=== PATIENT | male | born 1995 | race African-American/Black ===

== ENCOUNTER 2017-07-04 20:05 | Emergency (ER) | payer OTHER ==
[2017-07-04 20:13] VITALS: BP 104/58; PULSE 87; RESP 18; TEMP 98
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
== END 2017-07-04 21:01 | disposition home or self-care (01) ==
LOC: EC 20:05
DX: S00.81XA Abrasion of other part of head, initial encounter (principal); Z79.899 Other long term (current) drug therapy; V47.6XXA Car passenger injured in collision with fixed or stationary object in traffic accident, initial encounter; Y92.410 Unspecified street and highway as the place of occurrence of the external cause
CPT/HCPCS: 71020; 99284

== ENCOUNTER → 2017-07-29 | Outpatient (CLI) | payer OTHER ==
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
== END | disposition home or self-care (01) ==
LOC: RADMRIMAIN 20:40
PROVIDERS: ATTEND Family Medicine
DX: F07.81 Postconcussional syndrome (principal)
CPT/HCPCS: 70553; A9581

== ENCOUNTER → 2018-02-25 | Outpatient (CLI) | payer OTHER ==
--- NOTE | 2018-02-28 19:08 | EEG ---
ELECTROENCEPHALOGRAM REPORT DATE OF SERVICE: 02/25/2018. REASON FOR TESTING: Head injury with loss of consciousness, syncope, headache. DESCRIPTION OF THE PROCEDURE: This EEG was performed using a 21 channel digital electroencephalograph, following international 10-20 system. DESCRIPTION OF THE RECORDING: From the beginning of the tracing, and with patient's eyes closed, the background rhythm was mostly consisting of 10 Hz alpha frequency in the posterior occipital leads. No obvious asymmetry is seen. Frequent movement artifacts are seen. Photic stimulation was performed with a good driving response seen. No pathological waves were elicited. Hyperventilation was not performed. The patient remains awake throughout the tracing. No epileptiform discharges were seen. His EKG lead showed a regular rate and rhythm. INTERPRETATION: This awake EEG can be considered within normal limits. There was no asymmetry seen. No epileptiform discharges were noticed. The absence of epileptiform discharges does not rule out the diagnosis of epilepsy; therefore clinical correlation is recommended. Thank you, Dr. Wilson for allowing me to participate in the care of your patient. If you have any questions, please feel free to contact me. MMODL / IJN: [id number] /
== END | disposition home or self-care (01) ==
LOC: NEUROMAIN 07:30
PROVIDERS: ATTEND Family Medicine
DX: R55 Syncope and collapse (principal)
CPT/HCPCS: 95816

== ENCOUNTER 2018-03-23 16:51 | Emergency (ER) | payer OTHER ==
[2018-03-23 17:39] VITALS: BP 133/99; PULSE 76; RESP 20; TEMP 99.1
[2018-03-23] MEDS ORDERED: CEPHALEXIN 500 MG CAP PO STA (19:24)
[2018-03-23] MEDS ORDERED: MUPIROCIN 2% OINT 22 GM TUBE TOPICAL STA (19:24)
--- NOTE | 2018-03-23 19:36 | ED ---
Skin/Abscess/FB HPI - General Chief complaint: Skin/Abscess/Foreign Body Stated complaint: Rash/Abscess on Armpit Time Seen by Provider: 03/23/18 19:03 Source: patient, RN notes reviewed Mode of arrival: ambulatory Limitations: no limitations - History of Present Illness Initial comments: This is a 22-year-old male who presents to the emergency department with chief complaint of rash. Patient states that he developed a rash in his left armpit approximately one week ago. He states that his roommate had the same rash previously. He states that he has noticed that the rash has spread to his face and neck. He states the rash started off has clear pruritic lesions and is now painful and red. He states that he has been applying antifungal over-the- counter cream and hydrogen peroxide. He denies any fevers or chills. He states that his roommate was evaluated for the same rash and was given antibiotics which seemed to clear the rash up. Patient denies any medical issues. Denies chest pain or shortness of breath, abdominal pain, nausea or vomiting. - Related Data Home Medications Medication Instructions Recorded Confirmed Atomoxetine HCl [Strattera] 25 mg PO DAILY 07/04/17 07/04/17 Previous Rx's Medication Instructions Recorded Cephalexin [Keflex] 500 mg PO Q12HR #20 cap 03/23/18 Allergies Allergy/AdvReac Type Severity Reaction Status Date / Time montelukast [From Singulair] Allergy Unknown Verified 03/23/18 17:39 Review of Systems ROS Statement: Those systems with pertinent positive or pertinent negative responses have been documented in the HPI. ROS Other: All systems not noted in ROS Statement are negative. Past Medical History Past Medical History: No Reported History History of Any Multi-Drug Resistant Organisms: None Reported Additional Past Surgical History / Comment(s): tubes in bilat ears, cyst removal. Past Psychological History: No Psychological Hx Reported Smoking Status: Never smoker Past Alcohol Use History: None Reported Past Drug Use History: None Reported General Exam - General Exam Comments Initial Comments: General: Awake and alert, well-developed; in no apparent distress. HEENT: Head atraumatic, normocephalic. Pupils are equal, round and reactive to light. Extraocular movements intact. Oropharynx moist without erythema or exudate. Neck: Supple. Normal ROM. Cardiovascular: Regular rate and rhythm. No murmurs, rubs or gallops. Chest symmetrical. Respiratory: Lungs clear to auscultation bilaterally. No wheezes, rales or rhonchi. Normal respiratory effort with no use of accessory muscles. Musculoskeletal: Normal ROM, no tenderness bilateral upper and lower extremities. Ambulating normally. Skin: Scaly, erythematous dry patches of left axilla, left side of neck and one patch on the left cheek. Left cheek lesion has overlying yellow crusting. Neurological: Alert and oriented x3. CN II-XII grossly intact. Speech is fluent and answers are appropriate. No focal neuro deficits. Psychiatric: Normal mood and affect. No overt signs of depression or anxiety noted. Limitations: no limitations Course Vital Signs 03/23/18 17:36 Temperature 99.1 F Pulse Rate 76 Respiratory 20 Rate Blood Pressure 133/99 O2 Sat by Pulse 99 Oximetry Medical Decision Making - Medical Decision Making This is a 22-year-old male who presents to the emergency department with chief complaint of rash. Patient has a scaly, erythematous rash within the left axilla, neck and face. Patient was evaluated by myself and attending physician , Dr. Shah. Patient has been trying an antifungal cream without improvement. He will be started on Keflex and mupirocin ointment. Patient's vital signs are stable and he is in no acute distress. He will be discharged home at this time. He is in agreement and voices understanding. All questions were answered. Disposition Clinical Impression: Rash Disposition: HOME SELF-CARE Condition: Good Instructions: Acute Rash (ED), Impetigo (ED) Additional Instructions: Please take medications as prescribed. Please apply mupirocin ointment to the affected areas 2-3 times per day. Please follow up with primary care provider within 1-2 days. Return to emergency department if symptoms should worsen or any concerns arise. Prescriptions: Cephalexin [Keflex] 500 mg PO Q12HR #20 cap Is patient prescribed a controlled substance at d/c from ED?: No Referrals: Mario Wilson MD [Primary Care Provider] - 1-2 days Time of Disposition: 19:36
== END 2018-03-23 19:40 | disposition home or self-care (01) ==
LOC: EC 16:51
DX: R21 Rash and other nonspecific skin eruption (principal); Z79.899 Other long term (current) drug therapy; Z88.8 Allergy status to other drugs, medicaments and biological substances
CPT/HCPCS: 99282

== ENCOUNTER → 2018-06-29 | Outpatient (CLI) | payer OTHER ==
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
== END | disposition home or self-care (01) ==
LOC: RADMRIMAIN 14:04
PROVIDERS: ATTEND Family Medicine
DX: G44.329 Chronic post-traumatic headache, not intractable (principal)
CPT/HCPCS: 70553; A9585

== ENCOUNTER 2024-11-01 16:19 | Emergency (ER) | payer SELFPAY ==
[2024-11-01 16:39] VITALS: RESP 16; TEMP 98
--- NOTE | 2024-11-01 17:05 | ED ---
Abdominal Pain HPI - General Chief Complaint: Abdominal Pain Stated Complaint: Constipation Time Seen by Provider: 11/01/24 16:43 Source: patient, RN notes reviewed Mode of arrival: ambulatory Limitations: no limitations - History of Present Illness Initial Comments: This is a 28-year-old male who presents to the emergency department for abdominal pain. States that a few months ago he was having abdominal pain and found that he was constipated. He took MiraLAX and cleaned himself out. He felt better for a while afterwards, but then noticed that he would continue to have discomfort whenever he would lay a certain way. States that his bowels almost feel like they are being squished on each other. He is still having bowel movements each day. Denies any nausea or vomiting. MD Complaint: abdominal pain - Related Data Home Medications Medication Instructions Recorded Confirmed Atomoxetine HCl [Strattera] 25 mg PO DAILY 07/04/17 07/04/17 Previous Rx's Medication Instructions Recorded Cephalexin [Keflex] 500 mg PO Q12HR #20 cap 03/23/18 Allergies Allergy/AdvReac Type Severity Reaction Status Date / Time montelukast [From Singulair] Allergy Unknown Verified 11/01/24 16:39 Review of Systems ROS Statement: Those systems with pertinent positive or pertinent negative responses have been documented in the HPI. ROS Other: All systems not noted in ROS Statement are negative. Past Medical History Past Medical History: No Reported History History of Any Multi-Drug Resistant Organisms: None Reported Additional Past Surgical History / Comment(s): tubes in bilat ears, cyst removal. Past Psychological History: No Psychological Hx Reported Past Alcohol Use History: None Reported Past Drug Use History: None Reported General Exam Limitations: no limitations General appearance: alert, in no apparent distress Head exam: Present: atraumatic, normocephalic, normal inspection Respiratory exam: Present: normal lung sounds bilaterally. Absent: respiratory distress, wheezes, rales, rhonchi, stridor Cardiovascular Exam: Present: regular rate, normal rhythm GI/Abdominal exam: Present: soft, normal bowel sounds. Absent: distended, tenderness, guarding, rebound, rigid Neurological exam: Present: alert, oriented X3, CN II-XII intact Psychiatric exam: Present: normal affect, normal mood Skin exam: Present: warm, dry, intact, normal color. Absent: rash Course Vital Signs 11/01/24 11/01/24 16:36 18:35 Temperature 98.0 F Pulse Rate 100 94 Respiratory 16 16 Rate Blood Pressure 147/82 133/73 O2 Sat by Pulse 98 100 Oximetry Medical Decision Making - Medical Decision Making This is a 28 year old male who presents to the emergency department for abdominal pain. Was pt. sent in by a medical professional or institution? @ -No Did you speak to anyone other than the patient for history? @ -No Did you review nursing and triage notes? @ -Yes, and I agree, it is accurate with regards to the patient's symptoms. Were old charts reviewed? @ -No Differential Diagnosis? @ -Differential Abdominal Pain Men: Appendicitis, cholecystitis, diverticulosis, ischemic bowel, pancreatitis, h epatitis, UTI, gastroenteritis, AAA, incarcerated hernia, bowel obstruction, constipation, inflammatory bowel, hepatitis, peptic ulcer disease, splenic infarction, perforated viscus, testicular torsion, this is not meant to be an all-inclusive list EKG interpreted by me (3pts min.)? @ -Not obtained X-rays interpreted by me (1pt min.)? @ -KUB x-ray obtained. My interpretation identifies no dilation of the bowel loops. CT interpreted by me (1pt min.)? @ -Not obtained U/S interpreted by me (1pt. min.)? @ -Not obtained What testing was considered but not performed? (CT, X-rays, U/S, labs)? Why? @ -None What meds were considered but not given? Why? @ -None Did you discuss the management of the patient with other professionals? @ -No Did you reconcile home meds? @ -No Was smoking cessation discussed for >3mins.? @ -No Was critical care preformed (if so, how long)? @ -No Were there social determinants of health that impacted care today? How? (Homelessness, low income, unemployed, alcoholism, drug addiction, transporta tion, low edu. Level, literacy, decrease access to med. care, [facility], rehab)? @ -No Was there de-escalation of care discussed even if they declined? (Discuss DNR or withdrawal of care, Hospice)? @ -No What co-morbidities impacted this encounter? (DM, HTN, Smoking, COPD, CAD, Cancer, CVA, Hep., AIDS, mental health diagnosis, sleep apnea, morbid obesity)? @ -None Was patient admitted / discharged? @ -Discharged. Lab work demonstrates mild hypokalemia with potassium 3.4 and is otherwise unremarkable. 40 mEq of K-Dur administered. Urinalysis negative for signs of infection. KUB x-ray obtained revealing no acute process. Patient remained asymptomatic in the emergency department. Advised he continue with MiraLAX as needed for any additional constipation. We also discussed something like a daily probiotic to help regulate his bowels. Advised follow-up with his PCP for reevaluation of ongoing symptoms. Patient discharged home in stable condition. Case discussed with ED attending Dr. Prieto. Return precautions reviewed in depth, the patient is instructed to return to the emergency department with any new, worsening, or concerning symptoms. Patient verbalized understanding. Undiagnosed new problem with uncertain prognosis? @ -None Drug Therapy requiring intensive monitoring for toxicity (Heparin, Nitro, Insulin, Cardizem)? @ -None Were any procedures done? @ -None Diagnosis/symptom? @ -Abdominal pain Acute, or Chronic, or Acute on Chronic? @ -Chronic Uncomplicated (without systemic symptoms) or Complicated (systemic symptoms)? @ -Uncomplicated Side effects of treatment? @ -None Exacerbation, Progression, or Severe Exacerbation] @ -Exacerbation Poses a threat to life or bodily function? @ -No - Lab Data Result diagrams: 11/01/24 16:58 11/01/24 16:58 Lab Results 11/01/24 11/01/24 11/01/24 Range/Units 16:58 16:58 16:58 WBC 8.06 (4.50-10.00) 10*3/uL RBC 4.90 (4.40-5.60) 10*6/uL Hgb 15.3 (13.0-17.0) g/dL Hct 43.7 (39.6-50.0) % MCV 89.2 (80.0-97.0) fL MCH 31.2 (27.0-32.0) pg MCHC 35.0 (32.0-37.0) g/dL Plt Count 259 (140-440) 10*3/uL MPV 10.2 (9.5-12.2) fL Immature Gran % (Auto) 0.4 % Neutrophils % 51.3 % Lymphocytes % 42.2 % Monocytes % 5.3 % Eosinophils % 0.2 % Basophils % 0.6 % Immature Gran # 0.03 (0.00-0.04) 10*3/uL Neutrophils # 4.13 (1.80-7.70) 10*3/uL Lymphocytes # 3.40 (0.90-5.00) 10*3/uL Monocytes # 0.43 (0.20-1.00) 10*3/uL Eosinophils # 0.02 L (0.04-0.35) 10*3/uL Basophils # 0.05 (0.00-0.10) 10*3/uL Sodium 138 (137-145) mmol/L Potassium 3.4 L (3.5-5.1) mmol/L Chloride 103 (98-107) mmol/L Carbon Dioxide 23 (22-30) mmol/L Anion Gap 12 mmol/L BUN 19 (9-20) mg/dL Creatinine 0.82 (0.66-1.25) mg/dL Est GFR (CKD-EPI)AfAm >90 (>60 ml/min/1.73 sqM) Est GFR (CKD-EPI)NonAf >90 (>60 ml/min/1.73 sqM) Glucose 112 H (74-99) mg/dL Plasma Lactic Acid Kan 0.7 (0.7-2.0) mmol/L Calcium 10.0 (8.4-10.2) mg/dL Magnesium 2.0 (1.6-2.3) mg/dL Total Bilirubin 0.8 (0.2-1.3) mg/dL AST 30 (17-59) U/L ALT 32 (4-49) U/L Alkaline Phosphatase 63 (38-126) U/L Total Protein 7.3 (6.3-8.2) g/dL Albumin 4.7 (3.5-5.0) g/dL Amylase 69 (30-110) U/L Lipase 50 (23-300) U/L Urine Color Urine Appearance (Clear) Urine pH (5.0-8.0) Ur Specific [place] (1.001-1.035) Urine Protein (Negative) Urine Glucose (UA) (Negative) Urine Ketones (Negative) Urine Blood (Negative) Urine Nitrite (Negative) Urine Bilirubin (Negative) Urine Urobilinogen (<2.0) mg/dL Ur Leukocyte Esterase (Negative) 11/01/24 Range/Units 17:33 WBC (4.50-10.00) 10*3/uL RBC (4.40-5.60) 10*6/uL Hgb (13.0-17.0) g/dL Hct (39.6-50.0) % MCV (80.0-97.0) fL MCH (27.0-32.0) pg MCHC (32.0-37.0) g/dL Plt Count (140-440) 10*3/uL MPV (9.5-12.2) fL Immature Gran % (Auto) % Neutrophils % % Lymphocytes % % Monocytes % % Eosinophils % % Basophils % % Immature Gran # (0.00-0.04) 10*3/uL Neutrophils # (1.80-7.70) 10*3/uL Lymphocytes # (0.90-5.00) 10*3/uL Monocytes # (0.20-1.00) 10*3/uL Eosinophils # (0.04-0.35) 10*3/uL Basophils # (0.00-0.10) 10*3/uL Sodium (137-145) mmol/L Potassium (3.5-5.1) mmol/L Chloride (98-107) mmol/L Carbon Dioxide (22-30) mmol/L Anion Gap mmol/L BUN (9-20) mg/dL Creatinine (0.66-1.25) mg/dL Est GFR (CKD-EPI)AfAm (>60 ml/min/1.73 sqM) Est GFR (CKD-EPI)NonAf (>60 ml/min/1.73 sqM) Glucose (74-99) mg/dL Plasma Lactic Acid Kan (0.7-2.0) mmol/L Calcium (8.4-10.2) mg/dL Magnesium (1.6-2.3) mg/dL Total Bilirubin (0.2-1.3) mg/dL AST (17-59) U/L ALT (4-49) U/L Alkaline Phosphatase (38-126) U/L Total Protein (6.3-8.2) g/dL Albumin (3.5-5.0) g/dL Amylase (30-110) U/L Lipase (23-300) U/L Urine Color Yellow Urine Appearance Clear (Clear) Urine pH 6.5 (5.0-8.0) Ur Specific [place] 1.030 (1.001-1.035) Urine Protein Trace H (Negative) Urine Glucose (UA) Negative (Negative) Urine Ketones 2+ H (Negative) Urine Blood Negative (Negative) Urine Nitrite Negative (Negative) Urine Bilirubin Negative (Negative) Urine Urobilinogen 3.0 (<2.0) mg/dL Ur Leukocyte Esterase Negative (Negative) - Radiology Data Radiology results: report reviewed, image reviewed Disposition Clinical Impression: Abdominal pain Disposition: HOME SELF-CARE Instructions (If sedation given, give patient instructions): Abdominal Pain (ED) Additional Instructions: Return to the emergency department with any new, worsening, or concerning symptoms. Try taking Tylenol as needed for discomfort. You can also try taking an dpub-vby-rmmagal probiotic on a daily basis. If the constipation returns try taking MiraLAX. You can also try something like an antacid daily. Follow up with your primary care provider in 1-2 days. Is patient prescribed a controlled substance at d/c from ED?: No Referrals: Mario Wilson MD [Primary Care Provider] - 1-2 days Time of Disposition: 18:27
[2024-11-01] MEDS: SODIUM CHLORIDE 0.9% 1,000 ML IV ONE (17:09)
[2024-11-01 17:16] LABS: Basophils # (A) 0.05 10*3/uL (0.00-0.10); Basophils % (A) 0.6 %; Eosinophils # (A) 0.02 10*3/uL (0.04-0.35); Eosinophils % (A) 0.2 %; HCT 43.7 % (39.6-50.0); HGB 15.3 g/dL (13.0-17.0); Lymphocytes % (A) 42.2 %; MCH 31.2 pg (27.0-32.0); MCV 89.2 fL (80.0-97.0); Mean Platelet Volume 10.2 fL (9.5-12.2); Monocytes # (A) 0.43 10*3/uL (0.20-1.00); Monocytes % (A) 5.3 %; Neutrophils # (A) 4.13 10*3/uL (1.80-7.70); Neutrophils % (A) 51.3 %; Platelet Count 259 10*3/uL (140-440); RDW 12.2 % (11.5-14.5); WBC 8.06 10*3/uL (4.50-10.00)
[2024-11-01 17:29] LABS: ALT 32 U/L (4-49); AST 30 U/L (17-59); African American GFR (CKD) >90 (>60 ml/min/1.73 sqM); Albumin 4.7 g/dL (3.5-5.0); Alkaline Phosphatase 63 U/L (38-126); Amylase 69 U/L (30-110); Anion Gap 12 mmol/L; Blood Urea Nitrogen 19 mg/dL (9-20); Carbon Dioxide 23 mmol/L (22-30); Chloride 103 mmol/L (98-107); Glucose 112 mg/dL (74-99); Lipase 50 U/L (23-300); Non-African American GFR(CKD) >90 (>60 ml/min/1.73 sqM); Potassium 3.4 mmol/L (3.5-5.1); Sodium 138 mmol/L (137-145); Total Bilirubin 0.8 mg/dL (0.2-1.3); Total Protein 7.3 g/dL (6.3-8.2)
[2024-11-01 17:50] LABS: Appearance,Urine Clear (Clear); Bilirubin,Urine Negative (Negative); Blood,Urine Negative (Negative); Color,Urine Yellow; Glucose,Urine (UA) Negative (Negative); Ketones,Urine 2+ (Negative); Leukocyte Esterase,Urine Negative (Negative); Nitrite,Urine Negative (Negative); PH, Urine 6.5 (5.0-8.0); Protein,Urine Trace (Negative)
--- NOTE | 2024-11-01 17:50 | XR ---
EXAMINATION TYPE: XR KUB DATE OF EXAM: 11/01/2024 5:27 PM COMPARISON: None CLINICAL INDICATION: Male, 28 years old with history of abdominal pain; TECHNIQUE: One radiographic view of the abdomen was obtained. FINDINGS: The bowel gas pattern is nonspecific without dilated loops of small or large bowel. . Fecal material and gas are demonstrated throughout the colon and rectum. There is no evidence for organome susan or pneumoperitoneum. No acute osseous process. No abnormal calcifications are present. IMPRESSION: Nonspecific bowel gas pattern without radiographic evidence for acute process. [facility], , 11/01/2024 5:48 PM
[2024-11-01] MEDS: POTASSIUM CHLORIDE ER 20 MEQ TAB.ER PO STA (18:32)
[2024-11-01 18:35] VITALS: BP 133/73; PULSE 94
== END 2024-11-01 18:35 | disposition home or self-care (01) ==
LOC: EC 16:19
DX: R10.9 Unspecified abdominal pain (principal)
CPT/HCPCS: 36415; 74018; 80053; 81003; 82150; 83605; 83690; 83735; 85025; 96360; 99284